=== PATIENT | female | born 2000 | race Two or more races ===

== ENCOUNTER 2024-02-08 23:47 | Inpatient (IN) | payer SELFPAY ==
[~2024-02-08] VITALS: Ht 157.5 cm; Wt 81.8 kg
[2024-02-09 01:23] LABS: BASOPHILS % (AUTO) 0.7 % (0.0-2.0); EOSINOPHILS % (AUTO) 1.4 % (1.0-6.0); HEMATOCRIT 43.3 % (36-46); HEMOGLOBIN 14.1 g/dL (12.0-16.0); MEAN CORPUSCULAR HEMOGLOBIN 28.9 pg (26.0-34.0); MEAN CORPUSCULAR HGB CONC 32.6 G/dL (31.0-37.0); MEAN CORPUSCULAR VOLUME 89 fL (80-100); MONOCYTES # (AUTO) 0.7 K/uL (0.1-1.0); MONOCYTES % (AUTO) 6.9 % (2.0-9.0); NEUTROPHILS # (AUTO) 7.8 K/uL (1.8-7.7); PLATELET COUNT (AUTO) 378 K/uL (150-450); RED BLOOD CELL COUNT(AUTO) 4.88 MIL/uL (4.00-5.20); RED CELL DISTRIBUTION WIDTH 13.7 % (11.5-14.5); WHITE BLOOD COUNT (AUTO) 10.8 K/uL (4.5-11.0)
[2024-02-09 01:29] LABS: ANION GAP 11 mmol/L (8-16); CALCIUM, TOTAL 8.8 mg/dL (8.8-10.5); CARBON DIOXIDE 26 mmol/L (22-29); CHLORIDE 103 mmol/L (98-107); CREATININE 0.77 mg/dL (0.60-1.30); GLOMERULAR FILTR. RATE CALC > 60 mL/min (>60); GLUCOSE,RANDOM 92 mg/dL (70-110); POTASSIUM 3.7 mmol/L (3.5-5.1); SODIUM SERUM 140 mmol/L (136-145); UREA NITROGEN, BLOOD 7 mg/dL (7-18)
[2024-02-09 01:34] LABS: ALANINE AMINOTRANSFERASE 21 U/L (12-78); ALKALINE PHOSPHATASE 148 U/L (46-116); ASPARTATE AMINOTRANSFERASE 19 U/L (15-37); BILIRUBIN,TOTAL 0.2 mg/dL (0.1-1.0); TOTAL PROTEIN, SERUM 8.2 g/dL (6.4-8.2)
[2024-02-09] MEDS ORDERED: IOHEXOL 350 MG/ML 100 ML VIAL ONE (01:45)
[2024-02-09] MEDS ORDERED: SODIUM CHLORIDE 0.9% 100 ML ONE (01:45)
[2024-02-09] MEDS: LORazepam 2 MG/ML VIAL IVP ONE (02:07)
[2024-02-09 06:03] LABS: COVID AG,FIA SOURCE NASAL SWAB
[2024-02-09] MEDS: ONDANSETRON HCL 4 MG/2 ML VIAL IVP ONE (06:05)
[2024-02-09] MEDS: MORPHINE SULFATE 4 MG/ML SYRINGE IVP ONE (06:05)
[2024-02-09 06:21] LABS: SARS-COV2 (COVID) ANTIGEN,FIA Negative (Negative)
[2024-02-09] MEDS: VANCOMYCIN HCL 1.5 GM in DEXTROSE 5%-WATER 250 ML IV ONE (06:36)
[2024-02-09] MEDS ORDERED: ZOLPIDEM TARTRATE 5 MG TABLET PO PRN (08:15)
[2024-02-09] MEDS ORDERED: MAGNESIUM HYDROXIDE SUSPENSION 30 ML UDCUP PO PRN (08:15)
[2024-02-09] MEDS ORDERED: OxyCODONE HCL/ACETAMINOPHEN 5-325 MG TABLET PO PRN (08:15)
[2024-02-09] MEDS ORDERED: ONDANSETRON HCL 4 MG/2 ML VIAL IVP PRN (08:15)
[2024-02-09] MEDS ORDERED: ACETAMINOPHEN 325 MG TABLET PO PRN (08:15)
[2024-02-09] MEDS: FAMOTIDINE 20 MG TABLET PO SCH (09:10)
[2024-02-09] MEDS: OxyCODONE HCL/ACETAMINOPHEN 5-325 MG TABLET PO PRN (09:10)
[2024-02-09] MEDS: DOCUSATE SODIUM 100 MG CAPSULE PO SCH (09:10)
[2024-02-09 09:23] VITALS: BP 115/61; PULSE 72; RESP 18; TEMP 97.9; O2SAT 99
[2024-02-09] MEDS ORDERED: LIDOCAINE 2%/EPI 1:200,000/PF 20 ML VIAL ID ONE (14:30)
[2024-02-09] MEDS ORDERED: VANCOMYCIN HCL 1 GM in DEXTROSE 5%-WATER 250 ML IV SCH (16:00)
== END 2024-02-09 16:46 | disposition home or self-care (01) | DRG 571 ==
LOC: EMS 23:50 → 6S 02-09 07:51
PROVIDERS: ADMIT Internal Medicine; ATTEND Internal Medicine
PROC: 0JBN0ZZ Excision of Right Lower Leg Subcutaneous Tissue and Fascia, Open Approach (ICD-10-PCS; principal; 2024-02-09)
DX: L03.115 Cellulitis of right lower limb (principal); I96 Gangrene, not elsewhere classified; E66.9 Obesity, unspecified; Z20.822 Contact with and (suspected) exposure to COVID-19; Z68.33 Body mass index [BMI] 33.0-33.9, adult
CPT/HCPCS: 73701; 80053; 84703; 85025; 87040; 99285; J2060; J2270; J2405; J3370; J7050; J7060; Q9967